=== PATIENT | female | born 1960 | race Caucasian/White ===

== ENCOUNTER 2019-11-05 11:32 | Emergency (ER) | payer BC ==
[~2019-11-05] VITALS: Ht 152.4 cm; Wt 74.8 kg
[2019-11-05] MEDS ORDERED: ACETAMINOPHEN 325MG TABLET PO ONE (12:15)
[2019-11-05 12:38] LABS: CLARITY URINE CLOUDY (CLEAR); COLOR URINE YELLOW (YELLOW); KETONES URINE NEGATIVE (NEGATIVE); LEUKOCYTE ESTERASE URINE 2+ (NEGATIVE); NITRITE URINE NEGATIVE (NEGATIVE); OCCULT BLOOD URINE TRACE (NEGATIVE); PROTEIN URINE NEGATIVE (NEGATIVE); SPECIFIC GRAVITY URINE 1.023 (1.005-1.030); UROBILINOGEN URINE 0.2 E.U./dL (0.2-1.0)
[2019-11-05 13:16] VITALS: BP 157/83
== END 2019-11-05 13:17 | disposition home or self-care (01) ==
LOC: ER 11:32
DX: N39.0 Urinary tract infection, site not specified (principal); T14.8XXA Other injury of unspecified body region, initial encounter; X58.XXXA Exposure to other specified factors, initial encounter; Y93.89 Activity, other specified; Y92.89 Other specified places as the place of occurrence of the external cause; Y99.8 Other external cause status
CPT/HCPCS: 71045; 81003; 93005; 99285

== ENCOUNTER 2020-02-26 16:39 | Emergency (ER) | payer BC ==
[~2020-02-26] VITALS: Ht 152.4 cm; Wt 68.0 kg
[2020-02-26 16:54] VITALS: BP 141/99
== END 2020-02-26 18:11 | disposition home or self-care (01) ==
LOC: ER 16:58
DX: U07.1 COVID-19 (principal); R05 Cough; M06.9 Rheumatoid arthritis, unspecified
CPT/HCPCS: 71045; 99283